=== PATIENT | male | born 1975 | race African-American/Black ===

== ENCOUNTER 2023-06-23 12:12 | Inpatient (IN) | payer OTHER ==
[2023-06-23 12:32] VITALS: BMI 24.0
[2023-06-23] MEDS ORDERED: ACETAMINOPHEN 325 MG TABLET (FP) PO PRN (17:26)
[2023-06-23] MEDS ORDERED: IBUPROFEN 400 MG TABLET (FP) PO PRN (17:26)
[2023-06-23] MEDS ORDERED: hydrOXYzine PAMOATE 25 MG CAPSULE (FP) PO PRN (17:26)
[2023-06-23] MEDS ORDERED: ONDANSETRON *ODT* 4 MG TABLET SL PRN (17:26)
[2023-06-23] MEDS ORDERED: BENZONATATE 200 MG CAPSULE PO PRN (17:26)
[2023-06-23] MEDS ORDERED: BENZOCAINE/MENTHOL (CHLORASEPTIC ) LOZENGE MM PRN (17:26)
[2023-06-23] MEDS ORDERED: guaiFENesin 600 MG TABLET.ER (FP) PO PRN (17:26)
[2023-06-23] MEDS ORDERED: MAGNESIUM HYDROX 2400MG/30ML ORAL SUSPENSION 30 ML CUP PO PRN (17:26)
[2023-06-23] MEDS ORDERED: NALOXONE HCL 0.4 MG/ML VIAL IM PRN (17:26)
[2023-06-23] MEDS ORDERED: NALOXONE HCL (KLOXXADO) 8 MG SPRAY NS PRN (17:26)
[2023-06-23] MEDS ORDERED: DICYCLOMINE HCL 10 MG CAPSULE PO PRN (17:26)
[2023-06-23] MEDS ORDERED: MAG HYDROX/AL HYDROX/SIMETH 30 ML UNIT-DOSE CUP PO PRN (17:26)
[2023-06-23] MEDS ORDERED: POLYETHYLENE GLYCOL (HEALTHYLAX) 3350 17 GM PACKET PO PRN (17:26)
[2023-06-23] MEDS ORDERED: LOPERAMIDE HCL 2 MG CAPSULE PO PRN (17:26)
[2023-06-23] MEDS ORDERED: BISMUTH SUBSALICYLATE 524 MG/30 ML PO PRN (17:26)
[2023-06-23] MEDS: METHOCARBAMOL 500 MG TABLET PO PRN (21:31)
[2023-06-23] MEDS: MELATONIN 5 MG TABLETS PO SCH (21:31)
[2023-06-23] MEDS: THIAMINE HCL 100 MG TABLET (FP) PO SCH (21:31)
[2023-06-24] MEDS: METHOCARBAMOL 500 MG TABLET PO PRN (09:53)
[2023-06-24] MEDS: IBUPROFEN 600 MG TABLET (FP) PO PRN (09:53)
[2023-06-24] MEDS: PRENATAL VITAMINS W/ FOLIC ACID TABLET (FP) PO SCH (10:00)
[2023-06-24 11:59] LABS: HEMATOCRIT 38.7 % (35.4-49); HEMOGLOBIN 12.9 GM/dL (11.7-16.9); MCH 31.1 pg (25.7-33.7); MCHC 33.4 g/dl (32.0-35.9); MEAN CELL VOLUME 93.2 fl (80-96); MEAN PLT VOLUME 7.9 fl (7.5-11.1); PLATELET COUNT 278 10^3/uL (134-434); RBC 4.15 M/mm3 (4.00-5.60); RDW 14.5 % (11.9-15.9); WHITE BLOOD COUNT 6.8 K/mm3 (4.0-10.0)
[2023-06-24 12:27] LABS: POTASSIUM 4.4 mmol/L (3.5-5.1)
[2023-06-24 12:30] LABS: ALBUMIN 2.8 g/dl (3.4-5.0); BLOOD UREA NITROGEN 18.1 mg/dL (7-18); CALCIUM 8.1 mg/dL (8.5-10.1)
[2023-06-24 12:33] LABS: CREATININE 0.8 mg/dL (0.55-1.3)
[2023-06-24 12:35] LABS: BILIRUBIN,TOTAL 0.2 mg/dL (0.2-1); TOT PROT 5.6 g/dl (6.4-8.2)
[2023-06-24] MEDS: BUPRENORPHINE/NALOXONE 8 MG/2 MG FILM PACKET SL SCH ×2 (13:53→22:23)
[2023-06-24] MEDS: MELATONIN 5 MG TABLETS PO SCH (22:23)
[2023-06-24] MEDS: THIAMINE HCL 100 MG TABLET (FP) PO SCH (22:23)
[2023-06-25] MEDS: BUPRENORPHINE/NALOXONE 8 MG/2 MG FILM PACKET SL SCH ×3 (05:36→22:23)
[2023-06-25] MEDS: PRENATAL VITAMINS W/ FOLIC ACID TABLET (FP) PO SCH (10:07)
[2023-06-25] MEDS ORDERED: LORazepam 1 MG TABLET PO PRN (10:47)
[2023-06-25] MEDS: LORazepam 2 MG TABLET PO SCH ×3 (11:13→22:21)
[2023-06-25] MEDS: MELATONIN 5 MG TABLETS PO SCH (22:21)
[2023-06-25] MEDS: THIAMINE HCL 100 MG TABLET (FP) PO SCH (22:21)
[2023-06-26] MEDS: LORazepam 2 MG TABLET PO SCH ×4 (05:46→22:08)
[2023-06-26] MEDS: BUPRENORPHINE/NALOXONE 8 MG/2 MG FILM PACKET SL SCH ×3 (05:47→22:07)
[2023-06-26] MEDS: PRENATAL VITAMINS W/ FOLIC ACID TABLET (FP) PO SCH (10:24)
[2023-06-26] MEDS: IBUPROFEN 600 MG TABLET (FP) PO PRN (17:05)
[2023-06-26 17:17] VITALS: RESP 18
[2023-06-26] MEDS: THIAMINE HCL 100 MG TABLET (FP) PO SCH (22:07)
[2023-06-26] MEDS: MELATONIN 5 MG TABLETS PO SCH (22:07)
[2023-06-27] MEDS: BUPRENORPHINE/NALOXONE 8 MG/2 MG FILM PACKET SL SCH (05:17)
[2023-06-27] MEDS: LORazepam 1 MG TABLET PO SCH ×2 (05:18→10:06)
[2023-06-27 10:01] VITALS: BP 132/79; PULSE 62; TEMP 98.7
[2023-06-27] MEDS: PRENATAL VITAMINS W/ FOLIC ACID TABLET (FP) PO SCH (10:06)
[2023-06-27] MEDS ORDERED: guaiFENesin 600 MG TABLET.ER (FP) PO SCH (10:15)
[2023-06-28] MEDS ORDERED: LORazepam 0.5 MG TABLET PO PRN
[2023-06-28] MEDS ORDERED: LORazepam 0.5 MG TABLET PO SCH (05:00)
[2023-06-29] MEDS ORDERED: LORazepam 0.5 MG TABLET PO ONE (05:00)
== END 2023-06-27 13:15 | disposition home or self-care (01) | DRG 773 ==
LOC: YASAS 12:12 → Y3N 17:40
PROVIDERS: ADMIT Allergy & Immunology; ATTEND Allergy & Immunology
PROC: HZ2ZZZZ Detoxification Services for Substance Abuse Treatment (ICD-10-PCS; principal; 2023-06-23)
DX: F10.230 Alcohol dependence with withdrawal, uncomplicated (principal); F11.20 Opioid dependence, uncomplicated; F14.20 Cocaine dependence, uncomplicated; F16.20 Hallucinogen dependence, uncomplicated; F17.210 Nicotine dependence, cigarettes, uncomplicated; I10 Essential (primary) hypertension; J45.30 Mild persistent asthma, uncomplicated; K59.00 Constipation, unspecified
CPT/HCPCS: 36415; 80053; 85027; 86780; 87635

== ENCOUNTER 2023-08-27 17:05 | Inpatient (IN) | payer OTHER ==
[2023-08-27 18:47] VITALS: BMI 25.2
[2023-08-27] MEDS ORDERED: POLYETHYLENE GLYCOL (HEALTHYLAX) 3350 17 GM PACKET PO PRN (23:36)
[2023-08-27] MEDS ORDERED: BENZONATATE 200 MG CAPSULE PO PRN (23:36)
[2023-08-27] MEDS ORDERED: IBUPROFEN 400 MG TABLET (FP) PO PRN (23:36)
[2023-08-27] MEDS ORDERED: COLLOIDAL OATMEAL 1 BAR EACH TP PRN (23:36)
[2023-08-27] MEDS ORDERED: guaiFENesin 600 MG TABLET.ER (FP) PO PRN (23:36)
[2023-08-27] MEDS ORDERED: ACETAMINOPHEN 325 MG TABLET (FP) PO PRN (23:36)
[2023-08-27] MEDS ORDERED: LOPERAMIDE HCL 2 MG CAPSULE PO PRN (23:36)
[2023-08-27] MEDS ORDERED: NICOTINE POLACRILEX 2 MG GUM BUC PRN (23:36)
[2023-08-27] MEDS ORDERED: NALOXONE HCL 0.4 MG/ML VIAL IM PRN (23:36)
[2023-08-27] MEDS ORDERED: NALOXONE HCL (KLOXXADO) 8 MG SPRAY NS PRN (23:36)
[2023-08-27] MEDS ORDERED: hydrOXYzine PAMOATE 25 MG CAPSULE (FP) PO PRN (23:36)
[2023-08-27] MEDS ORDERED: BENZOCAINE/MENTHOL (CHLORASEPTIC ) LOZENGE MM PRN (23:36)
[2023-08-27] MEDS ORDERED: P-EPHED 60MG/TRIPROLIDI 2.5MG TABLET PO PRN (23:36)
[2023-08-27] MEDS ORDERED: MAGNESIUM HYDROX 2400MG/30ML ORAL SUSPENSION 30 ML CUP PO PRN (23:36)
[2023-08-27] MEDS ORDERED: MAG HYDROX/AL HYDROX/SIMETH 30 ML UNIT-DOSE CUP PO PRN (23:36)
[2023-08-27] MEDS ORDERED: IBUPROFEN 600 MG TABLET (FP) PO PRN (23:36)
[2023-08-28] MEDS: LIDOCAINE PATCH REMOVAL MC SCH ×2 (00:56→21:09)
[2023-08-28] MEDS: MELATONIN 5 MG TABLETS PO SCH ×2 (01:02→21:09)
[2023-08-28] MEDS: PRENATAL VITAMINS W/ FOLIC ACID TABLET (FP) PO SCH (10:47)
[2023-08-28] MEDS: LIDOCAINE 5% TOPICAL PATCH TP SCH (10:47)
[2023-08-28 11:19] LABS: HEMATOCRIT 36.9 % (35.4-49); HEMOGLOBIN 12.8 GM/dL (11.7-16.9); MCH 32.3 pg (25.7-33.7); MCHC 34.6 g/dl (32.0-35.9); MEAN CELL VOLUME 93.4 fl (80-96); MEAN PLT VOLUME 7.9 fl (7.5-11.1); PLATELET COUNT 261 10^3/uL (134-434); RBC 3.95 M/mm3 (4.00-5.60); WHITE BLOOD COUNT 5.3 K/mm3 (4.0-10.0)
[2023-08-28 11:23] LABS: CHLORIDE 108 mmol/L (98-107); POTASSIUM 3.9 mmol/L (3.5-5.1); SODIUM 141 mmol/L (136-145)
[2023-08-28 11:27] LABS: ANION GAP 6 mmol/L (4-13); CALCIUM 8.2 mg/dL (8.5-10.1); CO2 27 mmol/L (21-32); GLUCOSE,RANDOM 122 mg/dL (74-106)
[2023-08-28 11:28] LABS: BLOOD UREA NITROGEN 19.3 mg/dL (7-18)
[2023-08-28 11:30] LABS: CREATININE 0.9 mg/dL (0.55-1.3); SGPT/ALT 35 U/L (13-61)
[2023-08-28 11:31] LABS: SGOT/AST 15 U/L (15-37)
[2023-08-28 11:32] LABS: BILIRUBIN,TOTAL 0.3 mg/dL (0.2-1)
[2023-08-28 11:33] LABS: ALK PHOS 90 U/L (45-117)
[2023-08-28 11:50] LABS: SYPHILIS W/ RPR CONF NON-REACTIVE (NONREACTIVE)
[2023-08-28] MEDS: THIAMINE HCL 100 MG TABLET (FP) PO SCH (21:09)
[2023-08-29] MEDS: PRENATAL VITAMINS W/ FOLIC ACID TABLET (FP) PO SCH (10:24)
[2023-08-29] MEDS: LIDOCAINE 5% TOPICAL PATCH TP SCH (10:24)
[2023-08-29] MEDS: LIDOCAINE PATCH REMOVAL MC SCH (21:13)
[2023-08-29] MEDS: MELATONIN 5 MG TABLETS PO SCH (21:13)
[2023-08-29] MEDS: THIAMINE HCL 100 MG TABLET (FP) PO SCH (21:13)
[2023-08-30 06:37] VITALS: BP 126/77; PULSE 61; RESP 17; TEMP 97.8
[2023-08-30] MEDS: LIDOCAINE 5% TOPICAL PATCH TP SCH (11:26)
[2023-08-30] MEDS: PRENATAL VITAMINS W/ FOLIC ACID TABLET (FP) PO SCH (11:27)
== END 2023-08-30 15:19 | disposition left against medical advice (07) | DRG 770 ==
LOC: YASAS 17:05 → Y3W 23:59
PROVIDERS: ADMIT Psychiatry & Neurology Pain Medicine; ATTEND Surgery
PROC: HZ42ZZZ Group Counseling for Substance Abuse Treatment, Cognitive-Behavioral (ICD-10-PCS; principal; 2023-08-27)
DX: F10.20 Alcohol dependence, uncomplicated (principal); F14.20 Cocaine dependence, uncomplicated; F16.20 Hallucinogen dependence, uncomplicated; F17.210 Nicotine dependence, cigarettes, uncomplicated; F41.9 Anxiety disorder, unspecified; I10 Essential (primary) hypertension; J45.30 Mild persistent asthma, uncomplicated; M54.50 Low back pain, unspecified; G89.29 Other chronic pain; Z87.828 Personal history of other (healed) physical injury and trauma; Z56.0 Unemployment, unspecified; Z59.00 Homelessness unspecified
CPT/HCPCS: 36415; 80053; 80307; 85027; 86780; 86803; 87635

== ENCOUNTER 2024-07-15 12:42 | Inpatient (IN) | payer OTHER ==
[2024-07-15 13:16] VITALS: BMI 22.3
[2024-07-15] MEDS ORDERED: MAGNESIUM HYDROX 2400MG/30ML ORAL SUSPENSION 30 ML CUP PO PRN (13:29)
[2024-07-15] MEDS ORDERED: LOPERAMIDE HCL 2 MG CAPSULE PO PRN (13:29)
[2024-07-15] MEDS ORDERED: NALOXONE HCL 0.4 MG/ML VIAL IM PRN (13:29)
[2024-07-15] MEDS ORDERED: MAG HYDROX/AL HYDROX/SIMETH 30 ML UNIT-DOSE CUP PO PRN (13:29)
[2024-07-15] MEDS ORDERED: POLYETHYLENE GLYCOL (HEALTHYLAX) 3350 17 GM PACKET PO PRN (13:29)
[2024-07-15] MEDS ORDERED: BENZONATATE 200 MG CAPSULE PO PRN (13:29)
[2024-07-15] MEDS ORDERED: ACETAMINOPHEN 325 MG TABLET (FP) PO PRN (13:29)
[2024-07-15] MEDS ORDERED: DICYCLOMINE HCL 10 MG CAPSULE PO PRN (13:29)
[2024-07-15] MEDS ORDERED: BISMUTH SUBSALICYLATE 262 MG/15 ML BTL PO PRN (13:29)
[2024-07-15] MEDS ORDERED: guaiFENesin 600 MG TABLET.ER (FP) PO PRN (13:29)
[2024-07-15] MEDS ORDERED: NICOTINE POLACRILEX 2 MG LOZENGE BC PRN (13:29)
[2024-07-15] MEDS ORDERED: ONDANSETRON *ODT* 4 MG TABLET SL PRN (13:29)
[2024-07-15] MEDS ORDERED: P-EPHED 60MG/TRIPROLIDI 2.5MG TABLET PO PRN (13:29)
[2024-07-15] MEDS ORDERED: NICOTINE POLACRILEX 2 MG GUM BUC PRN (13:29)
[2024-07-15] MEDS ORDERED: NALOXONE (NARCAN) HCL 4 MG/0.1 ML SPRAY NS PRN (13:29)
[2024-07-15] MEDS ORDERED: IBUPROFEN 400 MG TABLET (FP) PO PRN (13:29)
[2024-07-15] MEDS: THIAMINE 100 MG TABLET PO SCH (22:41)
[2024-07-15] MEDS: METHOCARBAMOL 500 MG TABLET PO PRN (22:41)
[2024-07-15] MEDS: MELATONIN 5 MG TABLETS PO SCH (22:41)
[2024-07-16] MEDS: PRENATAL VITAMINS W/ FOLIC ACID TABLET (FP) PO SCH (10:40)
[2024-07-16] MEDS: IBUPROFEN 600 MG TABLET (FP) PO PRN (10:40)
[2024-07-16] MEDS: cloNIDine HCL 0.1 MG TABLET PO SCH (10:40)
[2024-07-16] MEDS: BUPRENORPHINE/NALOXONE 0.5 MG/0.125 MG FILM SL ONE ×2 (10:41→22:56)
[2024-07-16] MEDS: methaDONE HCL 10 MG TABLET (FOR DETOX USE ONLY) PO ONE (10:42)
[2024-07-16] MEDS: BENZOCAINE 20 % GEL TUBE MM PRN (11:19)
[2024-07-16 14:37] LABS: HEMATOCRIT 37.5 % (35.4-49); HEMOGLOBIN 12.6 GM/dL (11.7-16.9); MCH 31.8 pg (25.7-33.7); MCHC 33.5 g/dl (32.0-35.9); MEAN PLT VOLUME 8.4 fl (7.5-11.1); PLATELET COUNT 279 10^3/uL (134-434); RBC 3.94 M/mm3 (4.00-5.60); RDW 14.5 % (11.9-15.9); WHITE BLOOD COUNT 6.7 K/mm3 (4.0-10.0)
[2024-07-16 14:45] LABS: POTASSIUM 4.1 mmol/L (3.5-5.1)
[2024-07-16 14:51] LABS: BLOOD UREA NITROGEN 27.2 mg/dL (7-18)
[2024-07-16 14:52] LABS: ALBUMIN 2.9 g/dl (3.4-5.0); CALCIUM 8.7 mg/dL (8.5-10.1)
[2024-07-16 14:55] LABS: CREATININE 0.9 mg/dL (0.55-1.3)
[2024-07-16 14:56] LABS: BILIRUBIN,TOTAL 0.5 mg/dL (0.2-1)
[2024-07-16 14:57] LABS: TOT PROT 5.6 g/dl (6.4-8.2)
[2024-07-16 15:46] LABS: HIV INTERPRETATION NEGATIVE (NEGATIVE)
[2024-07-17] MEDS: BUPRENORPHINE/NALOXONE 0.5 MG/0.125 MG FILM SL SCH (10:16)
[2024-07-18] MEDS: hydrOXYzine PAMOATE 25 MG CAPSULE (FP) PO PRN (00:22)
[2024-07-18] MEDS ORDERED: methaDONE HCL 10 MG TABLET (FOR DETOX USE ONLY) PO ONE (10:00)
[2024-07-18] MEDS: BUPRENORPHINE/NALOXONE 2 MG/0.5 MG FILM PACKET SL SCH (10:35)
[2024-07-19] MEDS: BUPRENORPHINE/NALOXONE 4 MG/1 MG FILM PACKET SL SCH (09:11)
[2024-07-19] MEDS: BENZOCAINE/MENTHOL (CHLORASEPTIC ) LOZENGE MM PRN (09:12)
[2024-07-20] MEDS ORDERED: methaDONE HCL 10 MG TABLET (FOR DETOX USE ONLY) PO ONE (10:00)
[2024-07-20] MEDS: BUPRENORPHINE/NALOXONE 8 MG/2 MG FILM PACKET SL SCH (10:34)
[2024-07-20] MEDS: amLODIPine BESYLATE 5 MG TABLET (FP) PO SCH (10:34)
[2024-07-21 04:17] LABS: PH,URINE 7.5 (5.0-8.0); URINE APPEARANCE CLEAR; URINE BILIRUBIN NEGATIVE (NEGATIVE); URINE COLOR YELLOW; URINE GLUCOSE (UA) NEGATIVE (NEGATIVE); URINE KETONE NEGATIVE (NEGATIVE); URINE LEUK ESTERASE NEGATIVE (NEGATIVE); URINE NITRITE NEGATIVE (NEGATIVE); URINE PROTEIN NEGATIVE (NEGATIVE); URINE UROBILINOGEN 0.2 mg/dL (0.2-1.0)
[2024-07-21 06:47] VITALS: RESP 16
[2024-07-21 08:59] VITALS: BP 114/68; PULSE 54; TEMP 98.2
[2024-07-21] MEDS: BUPRENORPHINE/NALOXONE 8 MG/2 MG FILM PACKET SL SCH (09:51)
[2024-07-21] MEDS ORDERED: hydrOXYzine PAMOATE 25 MG CAPSULE (FP) PO PRN (16:59)
[2024-07-21] MEDS ORDERED: IBUPROFEN 400 MG TABLET (FP) PO PRN (16:59)
[2024-07-21] MEDS ORDERED: BENZOCAINE/MENTHOL (CHLORASEPTIC ) LOZENGE MM PRN (16:59)
[2024-07-21] MEDS ORDERED: guaiFENesin 600 MG TABLET.ER (FP) PO PRN (16:59)
[2024-07-21] MEDS ORDERED: NALOXONE HCL 0.4 MG/ML VIAL IVPUSH PRN (16:59)
[2024-07-21] MEDS ORDERED: METHOCARBAMOL 500 MG TABLET PO PRN (16:59)
[2024-07-21] MEDS ORDERED: MAG HYDROX/AL HYDROX/SIMETH 30 ML UNIT-DOSE CUP PO PRN (16:59)
[2024-07-21] MEDS ORDERED: POLYETHYLENE GLYCOL (HEALTHYLAX) 3350 17 GM PACKET PO PRN (16:59)
[2024-07-21] MEDS ORDERED: MAGNESIUM HYDROX 2400MG/30ML ORAL SUSPENSION 30 ML CUP PO PRN (16:59)
[2024-07-21] MEDS ORDERED: ACETAMINOPHEN 325 MG TABLET (FP) PO PRN (16:59)
[2024-07-21] MEDS ORDERED: BENZONATATE 200 MG CAPSULE PO PRN (16:59)
[2024-07-21] MEDS ORDERED: NALOXONE (NARCAN) HCL 4 MG/0.1 ML SPRAY NS PRN (16:59)
[2024-07-21] MEDS ORDERED: IBUPROFEN 600 MG TABLET (FP) PO PRN (16:59)
[2024-07-21] MEDS ORDERED: LOPERAMIDE HCL 2 MG CAPSULE PO PRN (16:59)
[2024-07-21] MEDS ORDERED: THIAMINE 100 MG TABLET PO SCH (22:00)
[2024-07-21] MEDS ORDERED: MELATONIN 5 MG TABLETS PO SCH (22:00)
[2024-07-22] MEDS ORDERED: PRENATAL VITAMINS W/ FOLIC ACID TABLET (FP) PO SCH (10:00)
== END 2024-07-21 12:23 | disposition other institution (70) | DRG 773 ==
LOC: YASAS 12:42 → Y3N 15:07
PROVIDERS: ADMIT Allergy & Immunology; ATTEND Surgery
PROC: HZ2ZZZZ Detoxification Services for Substance Abuse Treatment (ICD-10-PCS; principal; 2024-07-15)
DX: F11.23 Opioid dependence with withdrawal (principal); F14.20 Cocaine dependence, uncomplicated; F12.20 Cannabis dependence, uncomplicated; F17.210 Nicotine dependence, cigarettes, uncomplicated; F41.9 Anxiety disorder, unspecified; E86.0 Dehydration; I10 Essential (primary) hypertension; J45.909 Unspecified asthma, uncomplicated; M54.50 Low back pain, unspecified; G89.29 Other chronic pain; R35.0 Frequency of micturition; Z59.02 Unsheltered homelessness
CPT/HCPCS: 36415; 80053; 80305; 81003; 84153; 85027; 86780; 87389; 87811; 93005; 93010

== ENCOUNTER 2024-07-21 12:34 | Inpatient (IN) | payer OTHER ==
[2024-07-21] MEDS ORDERED: IBUPROFEN 400 MG TABLET (FP) PO PRN (17:05)
[2024-07-21] MEDS ORDERED: METHOCARBAMOL 500 MG TABLET PO PRN (17:05)
[2024-07-21] MEDS ORDERED: MAGNESIUM HYDROX 2400MG/30ML ORAL SUSPENSION 30 ML CUP PO PRN (17:05)
[2024-07-21] MEDS ORDERED: NALOXONE (NARCAN) HCL 4 MG/0.1 ML SPRAY NS PRN (17:05)
[2024-07-21] MEDS ORDERED: POLYETHYLENE GLYCOL (HEALTHYLAX) 3350 17 GM PACKET PO PRN (17:05)
[2024-07-21] MEDS ORDERED: BENZOCAINE/MENTHOL (CHLORASEPTIC ) LOZENGE MM PRN (17:05)
[2024-07-21] MEDS ORDERED: BENZONATATE 200 MG CAPSULE PO PRN (17:05)
[2024-07-21] MEDS ORDERED: guaiFENesin 600 MG TABLET.ER (FP) PO PRN (17:05)
[2024-07-21] MEDS ORDERED: LOPERAMIDE HCL 2 MG CAPSULE PO PRN (17:05)
[2024-07-21] MEDS ORDERED: MAG HYDROX/AL HYDROX/SIMETH 30 ML UNIT-DOSE CUP PO PRN (17:05)
[2024-07-21] MEDS ORDERED: ACETAMINOPHEN 325 MG TABLET (FP) PO PRN (17:05)
[2024-07-21] MEDS ORDERED: NALOXONE HCL 0.4 MG/ML VIAL IVPUSH PRN (17:05)
[2024-07-21] MEDS ORDERED: hydrOXYzine PAMOATE 25 MG CAPSULE (FP) PO PRN (17:05)
[2024-07-21] MEDS: BENZOCAINE 20 % GEL TUBE MM PRN (17:25)
[2024-07-21] MEDS: IBUPROFEN 600 MG TABLET (FP) PO PRN (17:25)
[2024-07-21] MEDS: MELATONIN 5 MG TABLETS PO SCH (21:23)
[2024-07-21] MEDS: THIAMINE 100 MG TABLET PO SCH (21:23)
[2024-07-21] MEDS: BUPRENORPHINE/NALOXONE 8 MG/2 MG FILM PACKET SL SCH (21:24)
[2024-07-22 06:44] VITALS: TEMP 98.4
[2024-07-22 09:28] VITALS: BP 126/83; PULSE 69; RESP 18
[2024-07-22] MEDS: PRENATAL VITAMINS W/ FOLIC ACID TABLET (FP) PO SCH (09:50)
[2024-07-22] MEDS: amLODIPine BESYLATE 5 MG TABLET (FP) PO SCH (09:50)
== END 2024-07-22 10:19 | disposition home or self-care (01) | DRG 772 ==
LOC: YASAS 12:34 → Y3W 12:36
PROVIDERS: ADMIT Psychiatry & Neurology Pain Medicine; ATTEND Psychiatry & Neurology Pain Medicine
PROC: HZ42ZZZ Group Counseling for Substance Abuse Treatment, Cognitive-Behavioral (ICD-10-PCS; principal; 2024-07-21)
DX: F11.20 Opioid dependence, uncomplicated (principal); F12.20 Cannabis dependence, uncomplicated; F17.210 Nicotine dependence, cigarettes, uncomplicated; F32.A Depression, unspecified; I10 Essential (primary) hypertension; J45.909 Unspecified asthma, uncomplicated; K08.89 Other specified disorders of teeth and supporting structures; M54.50 Low back pain, unspecified; G89.29 Other chronic pain

== ENCOUNTER 2024-11-02 16:28 | Inpatient (IN) | payer OTHER ==
[2024-11-02 17:35] VITALS: BMI 25.1
[2024-11-02] MEDS ORDERED: DICYCLOMINE HCL 10 MG CAPSULE PO PRN (19:44)
[2024-11-02] MEDS ORDERED: BENZOCAINE/MENTHOL (CHLORASEPTIC ) LOZENGE MM PRN (19:44)
[2024-11-02] MEDS ORDERED: BENZONATATE 200 MG CAPSULE PO PRN (19:44)
[2024-11-02] MEDS ORDERED: POLYETHYLENE GLYCOL (HEALTHYLAX) 3350 17 GM PACKET PO PRN (19:44)
[2024-11-02] MEDS ORDERED: ONDANSETRON *ODT* 4 MG TABLET SL PRN (19:44)
[2024-11-02] MEDS ORDERED: IBUPROFEN 400 MG TABLET (FP) PO PRN (19:44)
[2024-11-02] MEDS ORDERED: BISMUTH SUBSALICYLATE 524 MG/30 ML PO PRN (19:44)
[2024-11-02] MEDS ORDERED: NALOXONE (NARCAN) HCL 4 MG/0.1 ML SPRAY NS PRN (19:44)
[2024-11-02] MEDS ORDERED: guaiFENesin 600 MG TABLET.ER (FP) PO PRN (19:44)
[2024-11-02] MEDS ORDERED: LOPERAMIDE HCL 2 MG CAPSULE PO PRN (19:44)
[2024-11-02] MEDS: IBUPROFEN 600 MG TABLET (FP) PO PRN (20:50)
[2024-11-02] MEDS: THIAMINE 100 MG TABLET PO SCH (22:12)
[2024-11-02] MEDS: MELATONIN 5 MG TABLETS PO SCH (22:12)
[2024-11-02] MEDS: METHOCARBAMOL 500 MG TABLET PO PRN (22:13)
[2024-11-02] MEDS: hydrOXYzine PAMOATE 25 MG CAPSULE (FP) PO PRN (22:13)
[2024-11-03] MEDS: MAG HYDROX/AL HYDROX/SIMETH 30 ML UNIT-DOSE CUP PO PRN (01:01)
[2024-11-03] MEDS ORDERED: methaDONE HCL 10 MG TABLET (FOR DETOX USE ONLY) PO PRN (08:55)
[2024-11-03] MEDS: cloNIDine HCL 0.1 MG TABLET PO SCH (09:51)
[2024-11-03] MEDS: PRENATAL VITAMINS W/ FOLIC ACID TABLET (FP) PO SCH (09:51)
[2024-11-03] MEDS: BUPRENORPHINE/NALOXONE 0.5 MG/0.125 MG FILM SL ONE ×2 (09:51→22:16)
[2024-11-03] MEDS: methaDONE HCL 10 MG TABLET (FOR DETOX USE ONLY) PO ONE (09:52)
[2024-11-03 11:02] LABS: HEMATOCRIT 37.4 % (35.4-49); MCH 30.5 pg (25.7-33.7); MCHC 31.9 g/dl (32.0-35.9); MEAN CELL VOLUME 95.3 fl (80-96); MEAN PLT VOLUME 8.1 fl (7.5-11.1); PLATELET COUNT 236 10^3/uL (134-434); RBC 3.92 M/mm3 (4.00-5.60); RDW 14.7 % (11.9-15.9); WHITE BLOOD COUNT 6.5 K/mm3 (4.0-10.0)
[2024-11-03 11:07] LABS: CHLORIDE 103 mmol/L (98-107); POTASSIUM 3.5 mmol/L (3.5-5.1); SODIUM 140 mmol/L (136-145)
[2024-11-03 11:11] LABS: ALBUMIN 3.4 g/dl (3.4-5.0); ANION GAP 7 mmol/L (4-13); BLOOD UREA NITROGEN 30.6 mg/dL (7-18); CO2 29 mmol/L (21-32); GLUCOSE,RANDOM 99 mg/dL (74-106)
[2024-11-03 11:15] LABS: CREATININE 1.1 mg/dL (0.55-1.3); SGOT/AST 14 U/L (15-37); SGPT/ALT 20 U/L (13-61)
[2024-11-03 11:16] LABS: BILIRUBIN,TOTAL 0.2 mg/dL (0.2-1); TOT PROT 6.5 g/dl (6.4-8.2)
[2024-11-03 11:17] LABS: ALK PHOS 77 U/L (45-117)
[2024-11-03 12:04] LABS: HIV INTERPRETATION NEGATIVE (NEGATIVE)
[2024-11-04] MEDS: amLODIPine BESYLATE 5 MG TABLET (FP) PO SCH (10:18)
[2024-11-04] MEDS: BUPRENORPHINE/NALOXONE 0.5 MG/0.125 MG FILM SL SCH (10:19)
[2024-11-04] MEDS: MINERAL OIL/PETROLAT/WATER TOPICAL CREAM 113 GM JAR TP SCH (13:36)
[2024-11-04] MEDS: ALBUTEROL SO4 HFA INHALER IH PRN (13:37)
[2024-11-04] MEDS: MAGNESIUM HYDROX 2400MG/30ML ORAL SUSPENSION 30 ML CUP PO PRN (22:45)
[2024-11-05] MEDS: BUPRENORPHINE/NALOXONE 2 MG/0.5 MG FILM PACKET SL SCH (09:49)
[2024-11-05] MEDS: methaDONE HCL 10 MG TABLET (FOR DETOX USE ONLY) PO ONE (09:49)
[2024-11-05] MEDS: ACETAMINOPHEN 325 MG TABLET (FP) PO PRN (21:06)
[2024-11-06] MEDS: BUPRENORPHINE/NALOXONE 4 MG/1 MG FILM PACKET SL SCH (10:13)
[2024-11-06 13:42] LABS: HEMATOCRIT 34.9 % (35.4-49); HEMOGLOBIN 11.4 GM/dL (11.7-16.9); MCHC 32.8 g/dl (32.0-35.9); MEAN CELL VOLUME 94.4 fl (80-96); MEAN PLT VOLUME 8.3 fl (7.5-11.1); PLATELET COUNT 231 10^3/uL (134-434); RDW 15.7 % (11.9-15.9); WHITE BLOOD COUNT 7.5 K/mm3 (4.0-10.0)
[2024-11-06 13:59] LABS: CALCIUM 8.8 mg/dL (8.5-10.1)
[2024-11-06 14:00] LABS: ALBUMIN 3.2 g/dl (3.4-5.0); BLOOD UREA NITROGEN 13.3 mg/dL (7-18)
[2024-11-06 14:03] LABS: CREATININE 0.8 mg/dL (0.55-1.3)
[2024-11-06 14:04] LABS: BILIRUBIN,TOTAL 0.2 mg/dL (0.2-1); TOT PROT 6.1 g/dl (6.4-8.2)
[2024-11-06 14:22] LABS: ANISOCYTOSIS 0; MACROCYTOSIS 0
[2024-11-06] MEDS: METHOCARBAMOL 500 MG TABLET PO PRN (21:21)
[2024-11-06] MEDS: BENZOCAINE 20 % GEL TUBE MM PRN (22:07)
[2024-11-07] MEDS: methaDONE HCL 10 MG TABLET (FOR DETOX USE ONLY) PO ONE (09:54)
[2024-11-07] MEDS: BUPRENORPHINE/NALOXONE 8 MG/2 MG FILM PACKET SL SCH (09:54)
[2024-11-08] MEDS ORDERED: NALOXONE (NYS OPIOID OVERDOSE PROGRAM) 4 MG/0.1 ML SPRAY NS PRN (08:00)
[2024-11-08] MEDS: BUPRENORPHINE/NALOXONE 8 MG/2 MG FILM PACKET SL SCH (09:33)
[2024-11-08] MEDS ORDERED: hydrOXYzine PAMOATE 50 MG CAPSULE (FP) PO PRN (17:36)
[2024-11-08] MEDS: MELATONIN 5 MG TABLETS PO SCH (21:05)
[2024-11-09 13:44] VITALS: BP 134/80; PULSE 76; RESP 16; TEMP 98
== END 2024-11-09 14:01 | disposition home or self-care (01) | DRG 773 ==
LOC: YASAS 16:28 → Y3N 19:54
PROVIDERS: ADMIT Allergy & Immunology; ATTEND Surgery
PROC: HZ2ZZZZ Detoxification Services for Substance Abuse Treatment (ICD-10-PCS; principal; 2024-11-02)
DX: F11.23 Opioid dependence with withdrawal (principal); F14.20 Cocaine dependence, uncomplicated; F16.10 Hallucinogen abuse, uncomplicated; F17.210 Nicotine dependence, cigarettes, uncomplicated; F19.24 Other psychoactive substance dependence with psychoactive substance-induced mood disorder; F41.9 Anxiety disorder, unspecified; F43.10 Post-traumatic stress disorder, unspecified; I10 Essential (primary) hypertension; J45.30 Mild persistent asthma, uncomplicated; K59.00 Constipation, unspecified; M54.50 Low back pain, unspecified; G89.29 Other chronic pain
CPT/HCPCS: 36415; 71046-TC-FY; 80053; 80307; 85025; 85027; 86780; 86803; 87389; 87811; 93005; 93010

== ENCOUNTER 2024-11-23 13:12 | Inpatient (IN) | payer OTHER ==
[2024-11-23 13:20] VITALS: BMI 24.7
[2024-11-23] MEDS ORDERED: DICYCLOMINE HCL 10 MG CAPSULE PO PRN (14:24)
[2024-11-23] MEDS ORDERED: hydrOXYzine PAMOATE 25 MG CAPSULE (FP) PO PRN (14:24)
[2024-11-23] MEDS ORDERED: BISMUTH SUBSALICYLATE 262 MG/15 ML BTL PO PRN (14:24)
[2024-11-23] MEDS ORDERED: guaiFENesin 600 MG TABLET.ER (FP) PO PRN (14:24)
[2024-11-23] MEDS ORDERED: NICOTINE POLACRILEX 2 MG GUM BUC PRN (14:24)
[2024-11-23] MEDS ORDERED: IBUPROFEN 400 MG TABLET (FP) PO PRN (14:24)
[2024-11-23] MEDS ORDERED: BENZONATATE 200 MG CAPSULE PO PRN (14:24)
[2024-11-23] MEDS ORDERED: MAGNESIUM HYDROX 2400MG/30ML ORAL SUSPENSION 30 ML CUP PO PRN (14:24)
[2024-11-23] MEDS ORDERED: POLYETHYLENE GLYCOL (HEALTHYLAX) 3350 17 GM PACKET PO PRN (14:24)
[2024-11-23] MEDS ORDERED: LOPERAMIDE HCL 2 MG CAPSULE PO PRN (14:24)
[2024-11-23] MEDS ORDERED: BENZOCAINE/MENTHOL (CHLORASEPTIC ) LOZENGE MM PRN (14:24)
[2024-11-23] MEDS ORDERED: NALOXONE (NARCAN) HCL 4 MG/0.1 ML SPRAY NS PRN (14:24)
[2024-11-23] MEDS: methaDONE HCL 10 MG TABLET (FOR DETOX USE ONLY) PO ONE (15:20)
[2024-11-23] MEDS: cloNIDine HCL 0.1 MG TABLET PO SCH (17:43)
[2024-11-23] MEDS: MELATONIN 5 MG TABLETS PO SCH (22:05)
[2024-11-23] MEDS: THIAMINE 100 MG TABLET PO SCH (22:05)
[2024-11-23] MEDS: BUPRENORPHINE/NALOXONE 0.5 MG/0.125 MG FILM SL ONE (22:05)
[2024-11-24] MEDS: BUPRENORPHINE/NALOXONE 0.5 MG/0.125 MG FILM SL SCH (09:36)
[2024-11-24] MEDS: PRENATAL VITAMINS W/ FOLIC ACID TABLET (FP) PO SCH (09:36)
[2024-11-24] MEDS: NICOTINE 21 MG/24 HOURS TOPICAL PATCH TD SCH (09:37)
[2024-11-24 12:10] LABS: HEMATOCRIT 34.8 % (35.4-49); HEMOGLOBIN 11.2 GM/dL (11.7-16.9); MEAN CELL VOLUME 93.6 fl (80-96); MEAN PLT VOLUME 7.9 fl (7.5-11.1); PLATELET COUNT 313 10^3/uL (134-434); RBC 3.72 M/mm3 (4.00-5.60); WHITE BLOOD COUNT 6.4 K/mm3 (4.0-10.0)
[2024-11-24 12:26] LABS: CHLORIDE 111 mmol/L (98-107); POTASSIUM 3.5 mmol/L (3.5-5.1); SODIUM 144 mmol/L (136-145)
[2024-11-24 12:31] LABS: ALBUMIN 2.8 g/dl (3.4-5.0); ANION GAP 4 mmol/L (4-13); BLOOD UREA NITROGEN 19.1 mg/dL (7-18); CALCIUM 8.7 mg/dL (8.5-10.1); CO2 30 mmol/L (21-32); GLUCOSE,RANDOM 89 mg/dL (74-106)
[2024-11-24 12:34] LABS: CREATININE 0.8 mg/dL (0.55-1.3); SGOT/AST 10 U/L (15-37); SGPT/ALT 15 U/L (13-61)
[2024-11-24 12:35] LABS: BILIRUBIN,TOTAL 0.2 mg/dL (0.2-1)
[2024-11-24 12:36] LABS: TOT PROT 5.3 g/dl (6.4-8.2)
[2024-11-24 12:37] LABS: ALK PHOS 64 U/L (45-117)
[2024-11-24] MEDS: METHOCARBAMOL 500 MG TABLET PO PRN (22:12)
[2024-11-25] MEDS: MAG HYDROX/AL HYDROX/SIMETH 30 ML UNIT-DOSE CUP PO PRN (02:11)
[2024-11-25] MEDS: BUPRENORPHINE/NALOXONE 2 MG/0.5 MG FILM PACKET SL SCH (09:45)
[2024-11-25] MEDS: methaDONE HCL 10 MG TABLET (FOR DETOX USE ONLY) PO ONE (09:46)
[2024-11-26] MEDS: BUPRENORPHINE/NALOXONE 4 MG/1 MG FILM PACKET SL SCH (10:36)
[2024-11-26] MEDS: IBUPROFEN 600 MG TABLET (FP) PO PRN (12:40)
[2024-11-27] MEDS: ACETAMINOPHEN 325 MG TABLET (FP) PO PRN (01:19)
[2024-11-27] MEDS: ONDANSETRON *ODT* 4 MG TABLET SL PRN (09:04)
[2024-11-27] MEDS: BUPRENORPHINE/NALOXONE 8 MG/2 MG FILM PACKET SL SCH (10:23)
[2024-11-27] MEDS: methaDONE HCL 10 MG TABLET (FOR DETOX USE ONLY) PO ONE (10:24)
[2024-11-28] MEDS: NALOXONE (NYS OPIOID OVERDOSE PROGRAM) 4 MG/0.1 ML SPRAY NS SCH (08:09)
[2024-11-28] MEDS: BUPRENORPHINE/NALOXONE 8 MG/2 MG FILM PACKET SL SCH (09:53)
[2024-11-28 11:06] VITALS: BP 102/63; PULSE 63; RESP 16; TEMP 96.8
== END 2024-11-28 11:14 | disposition home or self-care (01) | DRG 773 ==
LOC: YASAS 13:12 → Y6N 14:36
PROVIDERS: ADMIT Allergy & Immunology; ATTEND Allergy & Immunology
PROC: HZ2ZZZZ Detoxification Services for Substance Abuse Treatment (ICD-10-PCS; principal; 2024-11-23)
DX: F11.23 Opioid dependence with withdrawal (principal); F14.20 Cocaine dependence, uncomplicated; F10.10 Alcohol abuse, uncomplicated; F12.20 Cannabis dependence, uncomplicated; F17.210 Nicotine dependence, cigarettes, uncomplicated; F19.282 Other psychoactive substance dependence with psychoactive substance-induced sleep disorder; F19.24 Other psychoactive substance dependence with psychoactive substance-induced mood disorder; I10 Essential (primary) hypertension; J45.20 Mild intermittent asthma, uncomplicated; M54.50 Low back pain, unspecified; G89.29 Other chronic pain
CPT/HCPCS: 36415; 80053; 80305; 80307; 85027; 86780; 93005; 93010; Q0162

== ENCOUNTER 2024-12-21 12:10 | Inpatient (IN) | payer OTHER ==
[2024-12-21 13:14] VITALS: BMI 24.0
[2024-12-21] MEDS ORDERED: LOPERAMIDE HCL 2 MG CAPSULE PO PRN (13:14)
[2024-12-21] MEDS ORDERED: NALOXONE (NARCAN) HCL 4 MG/0.1 ML SPRAY NS PRN (13:14)
[2024-12-21] MEDS ORDERED: ACETAMINOPHEN 325 MG TABLET (FP) PO PRN (13:14)
[2024-12-21] MEDS ORDERED: BUPRENORPHINE HCL 150 MCG, BUPRENORPHINE HCL 75 MCG BC PRN (13:14)
[2024-12-21] MEDS ORDERED: diazePAM 5 MG TABLET PO PRN (13:14)
[2024-12-21] MEDS ORDERED: DICYCLOMINE HCL 10 MG CAPSULE PO PRN (13:14)
[2024-12-21] MEDS ORDERED: MAG HYDROX/AL HYDROX/SIMETH 30 ML UNIT-DOSE CUP PO PRN (13:14)
[2024-12-21] MEDS ORDERED: ONDANSETRON *ODT* 4 MG TABLET SL PRN (13:14)
[2024-12-21] MEDS ORDERED: IBUPROFEN 600 MG TABLET (FP) PO PRN (13:14)
[2024-12-21] MEDS ORDERED: IBUPROFEN 400 MG TABLET (FP) PO PRN (13:14)
[2024-12-21] MEDS ORDERED: POLYETHYLENE GLYCOL (HEALTHYLAX) 3350 17 GM PACKET PO PRN (13:14)
[2024-12-21] MEDS: NICOTINE 7 MG/24 HOURS TOPICAL PATCH TD SCH (13:30)
[2024-12-21] MEDS ORDERED: BUPRENORPHINE HCL 150 MCG FILM BC ONE (15:24)
[2024-12-21] MEDS ORDERED: cloNIDine HCL 0.1 MG TABLET ONE (15:25)
[2024-12-21] MEDS ORDERED: BUPRENORPHINE HCL 75 MCG FILM BC ONE (15:25)
[2024-12-21] MEDS ORDERED: PRENATAL VITAMINS W/ FOLIC ACID TABLET (FP) PO ONE (15:25)
[2024-12-21] MEDS: BUPRENORPHINE HCL 150 MCG, BUPRENORPHINE HCL 75 MCG BC ONE (15:27)
[2024-12-21] MEDS: cloNIDine HCL 0.1 MG TABLET PO ONE (15:27)
[2024-12-21] MEDS: PRENATAL VITAMINS W/ FOLIC ACID TABLET (FP) PO SCH (15:27)
[2024-12-21] MEDS: THIAMINE 100 MG TABLET PO SCH (21:50)
[2024-12-21] MEDS: cloNIDine HCL 0.1 MG TABLET PO PRN (21:50)
[2024-12-21] MEDS: MELATONIN 5 MG TABLETS PO SCH (21:51)
[2024-12-21] MEDS: BENZONATATE 200 MG CAPSULE PO PRN (23:49)
[2024-12-22] MEDS ORDERED: BUPRENORPHINE HCL 150 MCG, BUPRENORPHINE HCL 75 MCG BC PRN
[2024-12-22] MEDS: guaiFENesin 600 MG TABLET.ER (FP) PO PRN (05:31)
[2024-12-22] MEDS: BUPRENORPHINE HCL 150 MCG, BUPRENORPHINE HCL 75 MCG BC SCH (05:32)
[2024-12-22] MEDS: amLODIPine BESYLATE 5 MG TABLET (FP) PO SCH (09:10)
[2024-12-22 11:24] LABS: CHLORIDE 107 mmol/L (98-107); POTASSIUM 3.8 mmol/L (3.5-5.1); SODIUM 140 mmol/L (136-145)
[2024-12-22 11:25] LABS: HEMATOCRIT 36.2 % (35.4-49); HEMOGLOBIN 11.8 GM/dL (11.7-16.9); MCH 30.7 pg (25.7-33.7); MCHC 32.5 g/dl (32.0-35.9); MEAN CELL VOLUME 94.6 fl (80-96); MEAN PLT VOLUME 8.1 fl (7.5-11.1); PLATELET COUNT 276 10^3/uL (134-434); RBC 3.82 M/mm3 (4.00-5.60); RDW 15.6 % (11.9-15.9); WHITE BLOOD COUNT 7.2 K/mm3 (4.0-10.0)
[2024-12-22 11:31] LABS: CALCIUM 8.6 mg/dL (8.5-10.1)
[2024-12-22 11:33] LABS: BLOOD UREA NITROGEN 21.5 mg/dL (7-18)
[2024-12-22 11:34] LABS: ALK PHOS 85 U/L (45-117); ANION GAP 3 mmol/L (4-13); CO2 31 mmol/L (21-32); GLUCOSE,RANDOM 110 mg/dL (74-106)
[2024-12-22 11:35] LABS: SGPT/ALT 33 U/L (13-61)
[2024-12-22 11:36] LABS: CREATININE 0.7 mg/dL (0.55-1.3); SGOT/AST 16 U/L (15-37)
[2024-12-22 11:39] LABS: BILIRUBIN,TOTAL 0.2 mg/dL (0.2-1)
[2024-12-22 11:40] LABS: TOT PROT 5.9 g/dl (6.4-8.2)
[2024-12-22] MEDS: BENZOCAINE/MENTHOL (CHLORASEPTIC ) LOZENGE MM PRN (16:04)
[2024-12-22] MEDS: METHOCARBAMOL 500 MG TABLET PO PRN (22:26)
[2024-12-23] MEDS: hydrOXYzine PAMOATE 25 MG CAPSULE (FP) PO PRN (00:58)
[2024-12-23] MEDS: MAGNESIUM HYDROX 2400MG/30ML ORAL SUSPENSION 30 ML CUP PO PRN (01:01)
[2024-12-23] MEDS: BUPRENORPHINE HCL 450 MCG FILM BC SCH (05:24)
[2024-12-24] MEDS: BUPRENORPHINE/NALOXONE 4 MG/1 MG FILM PACKET SL SCH (05:52)
[2024-12-25] MEDS: BUPRENORPHINE/NALOXONE 8 MG/2 MG FILM PACKET SL ONE (05:53)
[2024-12-25] MEDS: ALBUTEROL SO4 HFA INHALER IH PRN (06:01)
[2024-12-25 09:56] VITALS: TEMP 98.7
[2024-12-25] MEDS: BISMUTH SUBSALICYLATE 262 MG/15 ML BTL PO PRN (13:07)
[2024-12-25 13:24] VITALS: BP 124/89; PULSE 70; RESP 17
== END 2024-12-25 15:19 | disposition other institution (70) | DRG 773 ==
LOC: YASAS 12:10 → Y3N 15:56
PROVIDERS: ADMIT Allergy & Immunology; ATTEND Allergy & Immunology
PROC: HZ2ZZZZ Detoxification Services for Substance Abuse Treatment (ICD-10-PCS; principal; 2024-12-21)
DX: F11.23 Opioid dependence with withdrawal (principal); F10.230 Alcohol dependence with withdrawal, uncomplicated; F14.20 Cocaine dependence, uncomplicated; F12.20 Cannabis dependence, uncomplicated; F17.210 Nicotine dependence, cigarettes, uncomplicated; F19.282 Other psychoactive substance dependence with psychoactive substance-induced sleep disorder; F19.24 Other psychoactive substance dependence with psychoactive substance-induced mood disorder; F43.10 Post-traumatic stress disorder, unspecified; J45.20 Mild intermittent asthma, uncomplicated; M54.50 Low back pain, unspecified; G89.29 Other chronic pain
CPT/HCPCS: 36415; 80053; 80305; 80307; 85027; 86780; 87811; 93005; 93010

== ENCOUNTER 2024-12-25 15:24 | Inpatient (IN) | payer OTHER ==
[2024-12-25] MEDS ORDERED: BENZONATATE 200 MG CAPSULE PO PRN (16:03)
[2024-12-25] MEDS ORDERED: POLYETHYLENE GLYCOL (HEALTHYLAX) 3350 17 GM PACKET PO PRN (16:03)
[2024-12-25] MEDS ORDERED: NICOTINE POLACRILEX 2 MG GUM BUC PRN (16:03)
[2024-12-25] MEDS ORDERED: METHOCARBAMOL 500 MG TABLET PO PRN (16:03)
[2024-12-25] MEDS ORDERED: LOPERAMIDE HCL 2 MG CAPSULE PO PRN (16:03)
[2024-12-25] MEDS ORDERED: hydrOXYzine PAMOATE 25 MG CAPSULE (FP) PO PRN (16:03)
[2024-12-25] MEDS ORDERED: IBUPROFEN 400 MG TABLET (FP) PO PRN (16:03)
[2024-12-25] MEDS ORDERED: guaiFENesin 600 MG TABLET.ER (FP) PO PRN (16:03)
[2024-12-25] MEDS: BENZOCAINE/MENTHOL (CHLORASEPTIC ) LOZENGE MM PRN (17:28)
[2024-12-25] MEDS: THIAMINE 100 MG TABLET PO SCH (21:46)
[2024-12-25] MEDS: MELATONIN 5 MG TABLETS PO SCH (21:46)
[2024-12-25] MEDS: MAGNESIUM HYDROX 2400MG/30ML ORAL SUSPENSION 30 ML CUP PO PRN (21:48)
[2024-12-25] MEDS: BUPRENORPHINE/NALOXONE 8 MG/2 MG FILM PACKET SL SCH (21:49)
[2024-12-26] MEDS: PRENATAL VITAMINS W/ FOLIC ACID TABLET (FP) PO SCH (05:28)
[2024-12-26] MEDS: NICOTINE 7 MG/24 HOURS TOPICAL PATCH TD SCH (05:28)
[2024-12-26] MEDS: amLODIPine BESYLATE 5 MG TABLET (FP) PO SCH (09:18)
[2024-12-27] MEDS: MAG HYDROX/AL HYDROX/SIMETH 30 ML UNIT-DOSE CUP PO PRN (13:25)
[2024-12-28] MEDS: IBUPROFEN 600 MG TABLET (FP) PO PRN (01:29)
[2024-12-30] MEDS: ALBUTEROL SO4 HFA INHALER IH PRN (00:44)
[2024-12-30] MEDS ORDERED: OXYMETAZOLINE 0.05% NASAL SOLUTION 15 ML BOTTLE NS PRN (08:12)
[2024-12-30] MEDS ORDERED: guaiFENesin 600 MG TABLET.ER (FP) PO PRN (08:12)
[2024-12-30] MEDS ORDERED: BENZONATATE 200 MG CAPSULE PO PRN (08:13)
[2024-12-30] MEDS: BUPRENORPHINE/NALOXONE 4 MG/1 MG FILM PACKET SL SCH (13:26)
[2024-12-30] MEDS: BACLOFEN 10 MG TABLET (FP) PO SCH (21:01)
[2024-12-31] MEDS: SUVOREXANT 10 MG TABLET PO PRN (00:50)
[2024-12-31] MEDS: ACETAMINOPHEN 325 MG TABLET (FP) PO PRN (07:39)
[2025-01-01] MEDS: SUVOREXANT 15 MG TABLET PO PRN (21:10)
[2025-01-03 20:09] VITALS: PULSE 62
[2025-01-04 06:34] VITALS: BP 104/72; RESP 16; TEMP 97.7
[2025-01-04] MEDS ORDERED: SUVOREXANT 15 MG TABLET PO PRN (22:00)
== END 2025-01-04 11:18 | disposition home or self-care (01) | DRG 772 ==
LOC: YASAS 15:24 → Y3NR 15:25 → Y5N 12-28 11:46
PROVIDERS: ADMIT Psychiatry & Neurology Pain Medicine; ATTEND Psychiatry & Neurology Pain Medicine
PROC: HZ42ZZZ Group Counseling for Substance Abuse Treatment, Cognitive-Behavioral (ICD-10-PCS; principal; 2024-12-25)
DX: F11.20 Opioid dependence, uncomplicated (principal); F10.20 Alcohol dependence, uncomplicated; F14.20 Cocaine dependence, uncomplicated; F12.20 Cannabis dependence, uncomplicated; F17.210 Nicotine dependence, cigarettes, uncomplicated; F19.282 Other psychoactive substance dependence with psychoactive substance-induced sleep disorder; F19.24 Other psychoactive substance dependence with psychoactive substance-induced mood disorder; G47.00 Insomnia, unspecified; I10 Essential (primary) hypertension; J45.20 Mild intermittent asthma, uncomplicated; J06.9 Acute upper respiratory infection, unspecified; M54.50 Low back pain, unspecified; G89.29 Other chronic pain; Z59.00 Homelessness unspecified
CPT/HCPCS: 0241U-QW; 36415; 86803; J0475

== ENCOUNTER 2025-03-02 17:33 | Inpatient (IN) | payer OTHER ==
[2025-03-02 17:57] VITALS: BMI 23.5
[2025-03-02] MEDS ORDERED: BENZOCAINE/MENTHOL (CHLORASEPTIC ) LOZENGE MM PRN (18:46)
[2025-03-02] MEDS ORDERED: IBUPROFEN 400 MG TABLET (FP) PO PRN (18:46)
[2025-03-02] MEDS ORDERED: NALOXONE (NARCAN) HCL 4 MG/0.1 ML SPRAY NS PRN (18:46)
[2025-03-02] MEDS ORDERED: guaiFENesin 600 MG TABLET.ER (FP) PO PRN (18:46)
[2025-03-02] MEDS ORDERED: MAG HYDROX/AL HYDROX/SIMETH 30 ML UNIT-DOSE CUP PO PRN (18:46)
[2025-03-02] MEDS ORDERED: BENZONATATE 200 MG CAPSULE PO PRN (18:46)
[2025-03-02] MEDS ORDERED: ONDANSETRON *ODT* 4 MG TABLET SL PRN (18:46)
[2025-03-02] MEDS ORDERED: BISMUTH SUBSALICYLATE 524 MG/30 ML PO PRN (18:46)
[2025-03-02] MEDS ORDERED: NICOTINE POLACRILEX 2 MG GUM BUC PRN (18:46)
[2025-03-02] MEDS ORDERED: POLYETHYLENE GLYCOL (HEALTHYLAX) 3350 17 GM PACKET PO PRN (18:46)
[2025-03-02] MEDS ORDERED: MAGNESIUM HYDROX 2400MG/30ML ORAL SUSPENSION 30 ML CUP PO PRN (18:46)
[2025-03-02] MEDS ORDERED: LOPERAMIDE HCL 2 MG CAPSULE PO PRN (18:46)
[2025-03-02] MEDS ORDERED: DICYCLOMINE HCL 10 MG CAPSULE PO PRN (18:46)
[2025-03-02] MEDS ORDERED: IBUPROFEN 600 MG TABLET (FP) PO PRN (18:46)
[2025-03-02] MEDS: THIAMINE 100 MG TABLET PO SCH (23:07)
[2025-03-02] MEDS: MELATONIN 5 MG TABLETS PO SCH (23:07)
[2025-03-03] MEDS: NICOTINE 7 MG/24 HOURS TOPICAL PATCH TD SCH (10:11)
[2025-03-03] MEDS: PRENATAL VITAMINS W/ FOLIC ACID TABLET (FP) PO SCH (10:11)
[2025-03-03] MEDS ORDERED: ALBUTEROL SO4 HFA INHALER IH PRN (11:09)
[2025-03-03 11:32] LABS: HEMATOCRIT 37.5 % (40.1-51.0); HEMOGLOBIN 11.9 g/dL (13.7-17.5); MCHC 31.7 g/dl (32.3-36.5); MEAN PLT VOLUME 10.5 fl (9.4-12.4); PLATELET COUNT 240 x10^3/uL (163-337); RDW 14.6 % (12.1-15.9)
[2025-03-03 11:41] LABS: CHLORIDE 110 mmol/L (98-107); POTASSIUM 3.7 mmol/L (3.5-5.1); SODIUM 142 mmol/L (136-145)
[2025-03-03 11:43] LABS: ALBUMIN 2.9 g/dl (3.4-5.0); ANION GAP 9 mmol/L (4-13); BLOOD UREA NITROGEN 18.8 mg/dL (7-18); CALCIUM 8.9 mg/dL (8.5-10.1); CO2 24 mmol/L (21-32); GLUCOSE,RANDOM 152 mg/dL (74-106)
[2025-03-03 11:47] LABS: BILIRUBIN,TOTAL 0.2 mg/dL (0.2-1); CREATININE 0.9 mg/dL (0.55-1.3); SGOT/AST 16 U/L (15-37); SGPT/ALT 18 U/L (13-61); TOT PROT 5.6 g/dl (6.4-8.2)
[2025-03-03 11:49] LABS: ALK PHOS 89 U/L (45-117)
[2025-03-03] MEDS: METHOCARBAMOL 500 MG TABLET PO PRN (22:25)
[2025-03-03] MEDS: hydrOXYzine PAMOATE 25 MG CAPSULE (FP) PO PRN (22:25)
[2025-03-04] MEDS ORDERED: LORazepam 1 MG TABLET PO PRN (08:00)
[2025-03-04] MEDS ORDERED: amLODIPine BESYLATE 5 MG TABLET (FP) PO SCH (10:00)
[2025-03-04] MEDS: amLODIPine BESYLATE 10 MG TABLET (FP) PO SCH (10:22)
[2025-03-04] MEDS: LORazepam 2 MG TABLET PO SCH (10:22)
[2025-03-04] MEDS: NALTREXONE HCL 50 MG TABLET PO ONE (17:31)
[2025-03-05] MEDS: NALTREXONE HCL 50 MG TABLET PO SCH (10:28)
[2025-03-05] MEDS: ACETAMINOPHEN 325 MG TABLET (FP) PO PRN (17:11)
[2025-03-06] MEDS: LORazepam 1 MG TABLET PO SCH (05:08)
[2025-03-07] MEDS ORDERED: LORazepam 0.5 MG TABLET PO PRN
[2025-03-07] MEDS: LORazepam 0.5 MG TABLET PO SCH (05:14)
[2025-03-08] MEDS: LORazepam 0.5 MG TABLET PO ONE (05:00)
[2025-03-08 08:49] VITALS: BP 103/63; PULSE 59; RESP 16; TEMP 97.1
== END 2025-03-08 11:06 | disposition other institution (70) | DRG 774 ==
LOC: YASAS 17:33 → Y3N 19:42
PROVIDERS: ADMIT Allergy & Immunology; ATTEND Allergy & Immunology
PROC: HZ2ZZZZ Detoxification Services for Substance Abuse Treatment (ICD-10-PCS; principal; 2025-03-02)
DX: F10.230 Alcohol dependence with withdrawal, uncomplicated (principal); F14.20 Cocaine dependence, uncomplicated; F16.20 Hallucinogen dependence, uncomplicated; F12.20 Cannabis dependence, uncomplicated; F17.210 Nicotine dependence, cigarettes, uncomplicated; F43.10 Post-traumatic stress disorder, unspecified; I10 Essential (primary) hypertension; M54.50 Low back pain, unspecified; G89.29 Other chronic pain
CPT/HCPCS: 36415; 80053; 80305; 80307; 85027; 86780; 87811; 93005; 93010